=== PATIENT | male | born 2000 | race Caucasian/White ===

== ENCOUNTER 2022-05-28 10:26 | Outpatient (CLI) | payer BC, SELFPAY ==
[2022-05-28 17:30] LABS: Chloride* 106 mmol/L (96-114); Potassium* 4.2 mmol/L (3.6-5.1); Sodium* 143 mmol/L (135-149)
[2022-05-28 17:32] LABS: Cholesterol* 127 mg/dL (90-199)
[2022-05-28 17:33] LABS: Blood Urea Nitrogen* 14 mg/dL (5-24); Calcium* 9.8 mg/dL (8.4-10.6); Carbon Dioxide* 28 mmol/L (20-32); Estimated Glomerular Filt Rate 110 ml/min; Glucose* 86 mg/dL (60-115); Triglycerides* 64 mg/dL (40-149)
[2022-05-28 17:34] LABS: HDL Cholesterol* 49 mg/dL (>=40); LDL Cholesterol Calculated 65 mg/dL (<100)
== END 2022-05-28 10:27 | disposition home or self-care (01) ==
PROVIDERS: PCP Family Medicine; Visit Provider Family Medicine
DX: Z00.00 Encounter for general adult medical examination without abnormal findings (principal); Z13.1 Encounter for screening for diabetes mellitus; Z13.6 Encounter for screening for cardiovascular disorders; Z13.0 Encounter for screening for diseases of the blood and blood-forming organs and certain disorders involving the immune mechanism
CPT/HCPCS: 80048; 80061